=== PATIENT | male | born 1930 | race Caucasian/White ===

== ENCOUNTER 2017-02-16 07:28 | Emergency (ER) | payer MEDICARE, OTHER ==
[~2017-02-16] VITALS: Ht 180.3 cm; Wt 72.0 kg
[~2017-02-16 07:28] MED LIST: APIX5TAB PO; CARV6.252 PO; DIGO0.12 PO; LISI10TA3 PO; PRAV40TA2 PO; ZOLP10TA3 PO
[2017-02-16 07:35] VITALS: BP 124/75; PULSE 71; RESP 16; TEMP 97.5; O2SAT 99
--- NOTE | 2017-02-16 07:53 | PD ---
HPI Chief Complaint: lightheadedness Time Seen by Provider: 07:36 Travel History International Travel<30 days: No Contact w/Intl Traveler<30days: No Traveled to known affect area: No History of Present Illness HPI This patient came to the ER for evaluation of lightheadedness. He says that for the last 2 years he frequently gets lightheaded during the day. The reason he came was a developed lightheadedness during the middle the night when he got up to go to the restroom without unusual. No vertigo sensation. No headache or chest pain or syncope. Symptoms severity is mild. He has chronic A. fib and takes blood thinner. No alleviating factors. Duration one day PFSH Past Medical History Atrial Fibrillation: Yes Heart Rhythm Problems: Yes Cardiac Catheterization: Yes (6 YEARS AGO IN [place]) Cardiovascular Problems: Yes ([place], AFIB) High Cholesterol: No Congestive Heart Failure: No Coronary Artery Disease: Yes Diabetes: No Diminished Hearing: Yes ([place]) Hypertension: Yes Musculoskeletal: Yes (CERVICAL FX HX NO REPAIR) Immunizations Current: Yes Past Surgical History Abdominal Surgery: Yes (BILAT INGUINAL HERNIA REPAIR) Cardiac Surgery: Yes (CARDIAC CATH SIX YRS AGO ) Coronary Artery Bypass Graft: No Joint Replacement: Yes (SHOULDER SURG) Tonsillectomy: Yes Other Surgery: Yes (INGUINAL HERNIA X 2) Social History Alcohol Use: No Tobacco Use: No Substance Use: No Allergies-Medications (Allergen,Severity, Reaction): Coded Allergies: Penicillin (Verified Allergy, Mild, 02/16/17) Reported Meds & Prescriptions Reported Meds & Active Scripts Active Reported Zolpidem (Zolpidem Tartrate) 10 Mg Tab 10 Mg PO HS PRN Digoxin 0.125 Mg Tab 0.125 Mg PO DAILY Pravastatin 40 Mg Tab 40 Mg PO DAILY Lisinopril 10 Mg Tab 10 Mg PO DAILY Carvedilol 6.25 Mg Tab 6.25 Mg PO BID Eliquis (Apixaban) 5 Mg Tab 5 Mg PO DAILY Review of Systems General / Constitutional: No: Fever Eyes: No: Visual changes HENT: Positive: Lightheadedness, No: Headaches Cardiovascular: Positive: Irregular Rhythm, No: Chest Pain or Discomfort Respiratory: No: Shortness of Breath Gastrointestinal: No: Abdominal Pain Genitourinary: No: Dysuria Musculoskeletal: No: Pain Skin: No Rash Neurologic: No: Weakness Psychiatric: No: Depression Endocrine: No: Polydipsia Hematologic/Lymphatic: No: Easy Bruising Physical Exam Narrative GENERAL: Well-nourished, well-developed patient in no apparent distress. SKIN: Warm and dry. HEAD: Atraumatic. Normocephalic. EYES: Pupils equal and round. No scleral icterus. No injection or drainage. ENT: No nasal bleeding or discharge. Mucous membranes pink and moist. NECK: Trachea midline. No JVD. CARDIOVASCULAR: Irregularly irregular rhythm. No murmur appreciated. RESPIRATORY: No accessory muscle use. Clear to auscultation. Breath sounds equal bilaterally. GASTROINTESTINAL: Abdomen soft, non-tender, nondistended. Hepatic and splenic margins not palpable. MUSCULOSKELETAL: No obvious deformities. No clubbing. No cyanosis. No edema. NEUROLOGICAL: Awake and alert. No obvious cranial nerve deficits. Motor grossly within normal limits. Normal speech. PSYCHIATRIC: Appropriate mood and affect; insight and judgment normal. Data Data Last Documented VS Vital Signs Date Time Temp Pulse Resp B/P Pulse Ox O2 Delivery O2 Flow Rate FiO2 02/16/17 08:30 69 16 109/64 99 02/16/17 07:35 97.5 Orders Basic Metabolic Panel (Bmp) (02/16/17 07:49) Complete Blood Count With Diff (02/16/17 07:49) Ecg Monitoring (02/16/17 07:49) Iv Access Insert/Monitor (02/16/17 07:49) Oximetry (02/16/17 07:49) Sodium Chloride 0.9% Flush (Ns Flush) (02/16/17 08:00) Labs Laboratory Tests Test 02/16/17 08:00 White Blood Count 5.3 TH/MM3 Red Blood Count 4.70 MIL/MM3 Hemoglobin 14.7 GM/DL Hematocrit 43.7 % Mean Corpuscular Volume 92.9 FL Mean Corpuscular Hemoglobin 31.3 PG Mean Corpuscular Hemoglobin 33.7 % Concent Red Cell Distribution Width 13.7 % Platelet Count 207 TH/MM3 Mean Platelet Volume 8.2 FL Neutrophils (%) (Auto) 61.9 % Lymphocytes (%) (Auto) 29.4 % Monocytes (%) (Auto) 6.6 % Eosinophils (%) (Auto) 1.6 % Basophils (%) (Auto) 0.5 % Neutrophils # (Auto) 3.3 TH/MM3 Lymphocytes # (Auto) 1.6 TH/MM3 Monocytes # (Auto) 0.3 TH/MM3 Eosinophils # (Auto) 0.1 TH/MM3 Basophils # (Auto) 0.0 TH/MM3 CBC Comment DIFF FINAL Differential Comment Sodium Level 141 MEQ/L Potassium Level 4.4 MEQ/L Chloride Level 105 MEQ/L Carbon Dioxide Level 22.9 MEQ/L Anion Gap 13 MEQ/L Blood Urea Nitrogen 21 MG/DL Creatinine 1.40 MG/DL Estimat Glomerular Filtration 48 ML/MIN Rate Random Glucose 172 MG/DL Calcium Level 9.0 MG/DL MDM Medical Decision Making Medical Screen Exam Complete: Yes Emergency Medical Condition: Yes Medical Record Reviewed: Yes Differential Diagnosis A. fib with RVR, bradycardia, anemia, vertigo Narrative Course I have reviewed the patient's electronic medical record. Patient was seen here last 2014 when he had chest pain IV placed CBC is normal Metabolic profile shows minor renal insufficiency with creatinine 1.4 I reviewed his EKG which shows A. fib with a rate in the 70s and no ST elevation Extended cardiac monitoring reveals A. fib rate controlled in the 70s Patient's exam is benign revealing only A. fib which is chronic and rate controlled Neurologically intact and minimally symptomatic Stable for outpatient follow-up Diagnosis Primary Impression: Lightheadedness Additional Impression: Chronic a-fib Additional Instructions: The patient was advised to follow up with their physician and return if they worsen. Med/Other Pt SpecificInfo: Other Disposition: 01 DISCHARGE HOME Condition: Stable Ajith Garcia MD Feb 16, 2017 07:53
[2017-02-16] MEDS ORDERED: SODIUM CHLORIDE 0.9% FLUSH 5 ML FLUSH IVF PRN (08:00)
[2017-02-16 08:11] LABS: AUTOMATED NEUTROPHIL # 3.3 TH/MM3 (1.8-7.7); BASOPHIL % 0.5 % (0.0-2.0); EOSINOPHIL # 0.1 TH/MM3 (0-0.4); EOSINOPHIL % 1.6 % (0.0-4.0); HEMATOCRIT 43.7 % (39.0-51.0); HEMO FLAGS DIFF FINAL; LYMPH % 29.4 % (9.0-44.0); LYMPHOCYTE # 1.6 TH/MM3 (1.0-4.8); MEAN CELL VOLUME 92.9 FL (80.0-100.0); MEAN CORPUSCULAR HEMOGLOBIN 31.3 PG (27.0-34.0); MEAN CORPUSCULAR HGB CONC 33.7 % (32.0-36.0); MONO % 6.6 % (0.0-8.0); NEUT % 61.9 % (16.0-70.0); PLATELET COUNT 207 TH/MM3 (150-450); RED CELL DISTRIBUTION WIDTH 13.7 % (11.6-17.2); WHITE BLOOD COUNT 5.3 TH/MM3 (4.0-11.0)
[2017-02-16 08:15] LABS: POTASSIUM 4.4 MEQ/L (3.5-5.1)
[2017-02-16 08:18] LABS: BICARBONATE 22.9 MEQ/L (21.0-32.0)
[2017-02-16 08:30] VITALS: BP 109/64; PULSE 69; RESP 16; O2SAT 99
--- NOTE | 2017-02-16 14:22 | EKG ---
Date Performed: 02/16/2017 Time Performed: 07:39:46 PTAGE: 86 years EKG: Atrial fibrillation Abnormal ECG PREVIOUS TRACING : 03/30/2015 22.32 Compared to the previous tracing, [facility] IS NO LONG ER PRESENT DOCTOR: Alec Gonzalez Interpretating Date/Time 02/16/2017 14:19:27
== END 2017-02-16 08:58 | disposition home or self-care (01) ==
LOC: PHED 07:28
DX: I48.91 Unspecified atrial fibrillation (principal); I10 Essential (primary) hypertension
CPT/HCPCS: 80048; 85025; 93005; 99284